=== PATIENT | male | born 1990 | race Caucasian/White ===

== ENCOUNTER 2022-11-10 16:26 | Outpatient (CLI) | payer MEDICAID, SELFPAY ==
--- NOTE | 2022-11-10 16:00 | CRLHL7_ITS ---
For Patients: As a result of the Century Cures Act, medical imaging exams and procedure reports are released immediately into your electronic medical record. You may view this report before your referring provider. If you have questions, please contact your health care provider. Indication: Right testicular pain. Technique: Ultrasound of the scrotum and contents. Sonographic alexandre-scale images were obtained with spectral and color Doppler waveform and spectral waveform analysis of the testicles. Comparison: None. Findings: Both testicles are normal in size and echotexture. No masses. No suspicious calcifications. Normal arterial and venous color Doppler blood flow and spectral waveforms are present in both testicles. Epididymis: Small right epididymal head cyst measuring 0.3 x 0.2 x 0.3 cm. Otherwise unremarkable bilaterally. Normal blood flow. Other: No sign of hydrocele. No sign of varicocele. Scrotal wall is normal. Impression: 1. Small right epididymal head cyst. 2. Otherwise unremarkable ultrasound of the scrotum and contents. No sign of torsion or inflammation. Dictated by Masoud Howell MD @ 11/10/2022 6:11:20 PM (Electronically Signed)
== END 2022-11-10 16:27 | disposition home or self-care (01) ==
PROVIDERS: PCP Family Medicine; Visit Provider Student in an Organized Health Care Education/Training Program
DX: N50.819 Testicular pain, unspecified (principal); L72.0 Epidermal cyst
CPT/HCPCS: 76870; 80048; 93976

== ENCOUNTER 2024-07-01 08:47 | Outpatient (CLI) | payer OTHER, SELFPAY | END 2024-07-01 08:48 | disposition home or self-care (01) | LOC: NFLDREF 13:09 | PROVIDERS: PCP Internal Medicine; Referring Provider Internal Medicine; Visit Provider Internal Medicine | DX: E78.5 Hyperlipidemia, unspecified (principal) | CPT/HCPCS: 80053; 80061 ==